=== PATIENT | female | born 1960 | race Caucasian/White ===

== ENCOUNTER 2018-08-14 08:04 | Emergency (ER) | payer OTHER ==
[2018-08-14 08:20] VITALS: BP 171/88
[2018-08-14] MEDS ORDERED: Dicyclomine 10 MG Cap PO ONE (08:29)
--- NOTE | 2018-08-14 08:33 | EDM.PDOC ---
ED HPI GENERAL MEDICAL PROBLEM - General Chief Complaint: Chest Pain Stated Complaint: CHEST PAIN Time Seen by Provider: 08/14/18 08:28 Source of Information: Reports: Patient History Limitations: Reports: No Limitations - History of Present Illness INITIAL COMMENTS - FREE TEXT/NARRATIVE: 58-year-old female presents to the ED with retrosternal chest pressure discomfort that radiate up into both sides of her neck across the shoulders and upper back and associated with some dyspnea. In develop numbness and tingling in both upper extremities. Pain started about 0545 hrs. this morning shortly after she got up for the day. In pain became more intense while driving her son to school this morning. She rates it as severe as 8 out of 10. Currently the pain is pretty well dissipated. She denies burping belching or having any significant heartburn. She has a known hiatal hernia. Has had previous appendectomy. Denies any nausea vomiting. She's also been ill with upper respiratory tract infection mostly nasal congestion sinusitis with mild cough. Onset: Today Onset Date: 08/14/18 Onset Time: 05:45 Duration: Minutes: Location: Reports: Chest (Central chest pressure rating up into her bilateral neck and across the upper back and shoulders.) Quality: Reports: Ache, Pressure Severity: Moderate (Was intense as 8 out of 10 now pretty well gone.) Improves with: Reports: Other Worsens with: Denies: None (Spontaneously improved.), Breathing, Cold Therapy, Eating, Medication, Rest, Other, Movement Context: Denies: Activity, Exercise, Lifting, Sick Contact, Trauma, Other Associated Symptoms: Reports: Cough, cough w sputum (Has a mild cough.), Shortness of Breath, Other (Does have sinus infection.). 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.) Middle Chest Pain Score (Numeric/FACES): 2 - Related Data Allergies Allergy/AdvReac Type Severity Reaction Status Date / Time No Known Allergies Allergy Verified 02/24/16 07:00 Home Meds: Home Meds Aspirin [Ecotrin] 81 mg PO DAILY 08/14/18 [History] Budesonide/Formoterol Fumarate [Symbicort 80-4.5 Mcg Inhaler] 1 dose INH ASDIRECTED 08/14/18 [History] Diltiazem HCl [Cardizem LA] 120 mg PO DAILY 08/14/18 [History] Lisinopril 20 mg PO DAILY 08/14/18 [History] Omeprazole 20 mg PO QPM 08/14/18 [History] atorvaSTATin Calcium [Lipitor] 20 mg PO DAILY 08/14/18 [History] hydroCHLOROthiazide [Hydrochlorothiazide] 25 mg PO DAILY 08/14/18 [History] Past Medical History - Past Surgical History GI Surgical History: Reports: Appendectomy Social & Family History - Living Situation & Occupation Living situation: Reports: Occupation: Employed ED ROS GENERAL - Review of Systems Review Of Systems: See Below Constitutional: Reports: Decreased Appetite. Denies: Fever, Chills, Malaise, Weakness, Fatigue, Weight Loss HEENT: Reports: No Symptoms Respiratory: Reports: Shortness of Breath, Cough (Mild intermittent productive cough for the last week due to cold.). Denies: Wheezing, Pleuritic Chest Pain Cardiovascular: Reports: Chest Pain, Lightheadedness. Denies: Blood Pressure Problem (Central chest heaviness rating up into her lateral neck and across upper shoulders and into both arms this morning), Claudication, Dyspnea on Exertion, Edema, Orthopnea Endocrine: Reports: No Symptoms GI/Abdominal: Reports: Abdominal Pain (Has a known hiatal hernia but no significant abdominal discomfort at this time) : Reports: No Symptoms Musculoskeletal: Reports: No Symptoms Skin: Reports: No Symptoms Neurological: Reports: No Symptoms Psychiatric: Reports: No Symptoms Hematologic/Lymphatic: Reports: No Symptoms Immunologic: Reports: No Symptoms ED EXAM, GENERAL - Physical Exam Exam: See Below Exam Limited By: No Limitations General Appearance: Alert, WD/WN, No Apparent Distress Eye Exam: Bilateral Eye: Normal Inspection (No scleral icterus.) Throat/Mouth: Normal Inspection, Normal Lips, Normal Oropharynx Head: Atraumatic, Normocephalic Neck: Normal Inspection, Supple, Non-Tender. No: Full Range of Motion, Lymphadenopathy (L), Lymphadenopathy (R) Respiratory/Chest: No Respiratory Distress, Lungs Clear, Normal Breath Sounds, No Accessory Muscle Use, Chest Non-Tender Cardiovascular: Normal Peripheral Pulses, Regular Rate, Rhythm, No Edema, No Gallop, No Murmur, No Rub Peripheral Pulses: 3+: Posterior Tibial (L), Posterior Tibial (R), Dorsalis Pedis (L), Dorsalis Pedis (R) GI/Abdominal: Normal Bowel Sounds, Soft, No Organomegaly, Tender Back Exam: Normal Inspection, Full Range of Motion. No: CVA Tenderness (L), CVA Tenderness (R) Extremities: Normal Inspection, Normal Range of Motion, Non-Tender, No Pedal Edema Neurological: Alert, Oriented, CN II-XII Intact, Normal Cognition, Normal Gait Psychiatric: Normal Affect, Normal Mood Skin Exam: Warm, Dry, Intact, Normal Color, No Rash EKG INTERPRETATION EKG Date: 08/14/18 Time: 08:16 Rhythm: NSR Rate (Beats/Min): 80 [place]: LAD-Left [place] Deviation (-21) P-Wave: Present QRS: Other (There is a near Q-wave in V1 and V2 and V3 suggestive of an old anteroseptal myocardial infarction. There is decreased voltage throughout the precordial leads she does have a thick chest. Similarly there is a near Q-wave in 3 and Q-wave in aVF compatible with an old inferior wall myocardial infarction. T-wave flattening in aVF and inversion in lead 3 which can be a normal variant. No definitive signs of any acute ischemia.) QT: Prolonged (Mildly prolonged) Course - Vital Signs Last Recorded V/S: Last Vital Signs Temp 36.7 C 08/14/18 08:13 Pulse 86 08/14/18 08:13 Resp 13 08/14/18 08:13 BP 171/88 H 08/14/18 08:13 Pulse Ox 100 08/14/18 08:13 - Orders/Labs/Meds Orders: Active Orders 24 hr Category Date Time Status EKG 12 Lead [EKG Documentation Completion] [RC] STAT Care 08/14/18 08:26 Active EKG Documentation Completion [RC] STAT Care 08/14/18 08:28 Active Labs: Laboratory Tests 08/14/18 08/14/18 08/14/18 Range/Units 08:34 08:34 08:34 WBC 6.74 (3.98-10.04) K/mm3 RBC 5.09 (3.98-5.22) M/mm3 Hgb 15.5 (11.2-15.7) gm/L Hct 46.3 H (34.1-44.9) % MCV 91.0 (79.4-94.8) fl MCH 30.5 (25.6-32.2) pg MCHC 33.5 (32.2-35.5) g/dl RDW Std Deviation 43.7 (36.4-46.3) fL Plt Count 238 (182-369) K/mm3 MPV 9.3 L (9.4-12.3) fl Neutrophils % (Manual) 56 (40-60) % Band Neutrophils % 2 (0-10) % Lymphocytes % (Manual) 31 (20-40) % Atypical Lymphs % 0 % Monocytes % (Manual) 9 (2-10) % Eosinophils % (Manual) 2 (0.7-5.8) % Basophils % (Manual) 0 L (0.1-1.2) Platelet Estimate Adequate RBC Morph Comment Normal D-Dimer, Quantitative (0.19-0.50) mg/L Sodium 140 (136-145) mEq/L Potassium 3.5 (3.5-5.1) mEq/L Chloride 104 (98-107) mEq/L Carbon Dioxide 25 (21-32) mEq/L Anion Gap 14.5 (5-15) BUN 15 (7-18) mg/dL Creatinine 0.9 (0.55-1.02) mg/dL Est Cr Clr Drug Dosing 54.55 mL/min Estimated GFR (MDRD) > 60 (>60) mL/min BUN/Creatinine Ratio 16.7 (14-18) Glucose 164 H (74-106) mg/dL Calcium 8.9 (8.5-10.1) mg/dL Magnesium 2.0 (1.8-2.4) mg/dl Total Bilirubin 0.5 (0.2-1.0) mg/dL AST 23 (15-37) U/L ALT 43 (14-59) U/L Alkaline Phosphatase 84 (46-116) U/L CK-MB (CK-2) 1.3 (0-3.6) ng/ml Troponin I < 0.017 (0.00-0.056) ng/mL C-Reactive Protein 0.4 (<1.0) mg/dL NT-Pro-B Natriuret Pep 36 (0-125) pg/mL Total Protein 7.4 (6.4-8.2) g/dl Albumin 3.5 (3.4-5.0) g/dl Globulin 3.9 gm/dL Albumin/Globulin Ratio 0.9 L (1-2) Amylase 21 L (25-115) U/L 08/14/18 Range/Units 08:34 WBC (3.98-10.04) K/mm3 RBC (3.98-5.22) M/mm3 Hgb (11.2-15.7) gm/L Hct (34.1-44.9) % MCV (79.4-94.8) fl MCH (25.6-32.2) pg MCHC (32.2-35.5) g/dl RDW Std Deviation (36.4-46.3) fL Plt Count (182-369) K/mm3 MPV (9.4-12.3) fl Neutrophils % (Manual) (40-60) % Band Neutrophils % (0-10) % Lymphocytes % (Manual) (20-40) % Atypical Lymphs % % Monocytes % (Manual) (2-10) % Eosinophils % (Manual) (0.7-5.8) % Basophils % (Manual) (0.1-1.2) Platelet Estimate RBC Morph Comment D-Dimer, Quantitative 0.21 (0.19-0.50) mg/L Sodium (136-145) mEq/L Potassium (3.5-5.1) mEq/L Chloride (98-107) mEq/L Carbon Dioxide (21-32) mEq/L Anion Gap (5-15) BUN (7-18) mg/dL Creatinine (0.55-1.02) mg/dL Est Cr Clr Drug Dosing mL/min Estimated GFR (MDRD) (>60) mL/min BUN/Creatinine Ratio (14-18) Glucose (74-106) mg/dL Calcium (8.5-10.1) mg/dL Magnesium (1.8-2.4) mg/dl Total Bilirubin (0.2-1.0) mg/dL AST (15-37) U/L ALT (14-59) U/L Alkaline Phosphatase (46-116) U/L CK-MB (CK-2) (0-3.6) ng/ml Troponin I (0.00-0.056) ng/mL C-Reactive Protein (<1.0) mg/dL NT-Pro-B Natriuret Pep (0-125) pg/mL Total Protein (6.4-8.2) g/dl Albumin (3.4-5.0) g/dl Globulin gm/dL Albumin/Globulin Ratio (1-2) Amylase (25-115) U/L Meds: Medications Discontinued Medications Generic Name Dose Route Start Last Admin Trade Name Odalis PRN Reason Stop Dose Admin Dicyclomine HCl 20 mg 08/14/18 08:29 08/14/18 08:37 Bentyl PO 08/14/18 08:30 20 mg ONETIME ONE Administration - Radiology Interpretation Free Text/Narrative:: 58-year-old female presents to the ED for evaluation of transient retrosternal chest pressure discomfort that radiated up into her neck and across her upper shoulders and into both upper extremities. Was described as a pressure sensation and radiated through to her mid back. Check chart about 0545 hrs. this morning and seemed to intensify over the ensuing hour which brought her to the ED. At time of arrival in the ED the pain it pretty well subsided. There was no associated burping belching or noted reflux. Patient does have a history of hiatal hernia. She has not yet eaten breakfast this morning. Examination was completely benign. ECG suggests evidence of old anteroseptal and inferior wall myocardial infarction which the patient has no history of. I will try to obtain an old ECG for comparison purposes. She doesn't want an IV at this time. Routine labs will be collected and one view chest x-ray. - Re-Assessments/Exams Free Text/Narrative Re-Assessment/Exam: 08/14/18 08:57 chest x-ray done portably is within normal limits. No pulmonary infiltrates .Cardiac size is within normal limits. 08/14/18 09:23 Labs reveal a normal white count at 6.74. 56% neutrophils 2% band cells. Hemoglobin is 15.5 with hematocrit of 46.3. Platelet count 238,000. D-dimer was 0.21. Sodium 140 with potassium 3.5. Chloride 104 the bicarbonate 25. Anion gap is 14.5 B1 is 15 with a creatinine of 0.9. Estimated GFR is greater than 60. Glucose a calcium of 8.9. Magnesium 2.0. Liver function normal CK-MB is 1.3. Troponin I is less than 0.017. C-reactive protein 0.4 BNP is 36 with a total protein is 7.4. Of even fraction slightly low at 3.5. Amylase is 21 Departure - Departure Time of Disposition: 09:53 Disposition: Home, Self-Care 01 Condition: Fair Clinical Impression: Non-cardiac chest pain, Hiatal hernia Instructions: Hiatal Hernia, Nonspecific Chest Pain, [id number] Referrals: Tay Davis MD [Primary Care Provider] - Forms: ED Department Discharge Additional Instructions: Evaluation the emergency room today in regards to development of central chest pressure discomfort that radiate up into the neck and across the upper shoulders and into both arms this morning. After you have been up for a period of time. By the time you came to the ED it had relieved itself a great deal and was nearly gone. ECG did not show any signs of acute ischemic change. Heart markers were completely normal. D-dimer looking for blood clot in the lung was also negative. Chest x-ray revealed normal lung bonilla and normal sized heart. It is that the chest pain was likely GI in origin with a small hiatal hernia having herniated up into your lower chest during the night and then started bothering you once he got up and moving around with gravity. Her with moving around the stomach likely return back into the abdominal cavity and thus relieved your pain. There is a fundoplication repair that can be done on the stomach to the bellybutton if you continue to have problems with hiatal hernia and reflux. He could discuss this with your primary care physician to have something set up if you want to pursue surgical treatment. - My Orders Last 24 Hours: My Active Orders 08/14/18 08:26 EKG 12 Lead [EKG Documentation Completion] [RC] STAT 08/14/18 08:28 EKG Documentation Completion [RC] STAT - Assessment/Plan Last 24 Hours: My Active Orders 08/14/18 08:26 EKG 12 Lead [EKG Documentation Completion] [RC] STAT 08/14/18 08:28 EKG Documentation Completion [RC] STAT
--- NOTE | 2018-08-14 08:57 | CR ---
Chest: Frontal view of the chest was obtained. Comparison: No prior chest x-ray. Heart size and mediastinum are normal. Lungs are clear. Bony structures are grossly intact. Impression: 1. Nothing acute is seen on frontal chest x-ray. Diagnostic code #1
== END 2018-08-14 10:15 | disposition home or self-care (01) ==
LOC: JD.ED 08:04
DX: R07.89 Other chest pain (principal); K44.9 Diaphragmatic hernia without obstruction or gangrene; Z79.82 Long term (current) use of aspirin; Z79.899 Other long term (current) drug therapy
CPT/HCPCS: 36415; 71045; 80053; 82150; 82553; 83735; 83880; 84484; 85007; 85027; 85379; 86140; 93005; 99285; A9270; 93010

== ENCOUNTER 2025-03-20 14:06 | Emergency (ER) | payer MEDICARE, OTHER ==
[2025-03-20 14:53] LABS: BASOPHILS ABSOLUTE AUTO 0.0 K/mm3 (0.0-0.2); BASOPHILS PERCENT AUTO 0.9 % (0.0-1.0); EOSINOPHILS ABSOLUTE AUTO 0.2 K/mm3 (0.0-0.4); EOSINOPHILS PERCENT AUTO 3.5 % (0.0-6.0); IMMATURE GRAN ABSOLUTE AUTO 0.03 K/mm3 (0.00-0.05); IMMATURE GRAN PERCENT AUTO 0.7 % (0.0-0.4); LYMPHOCYTES ABSOLUTE AUTO 1.9 K/mm3 (1.0-4.8); LYMPHOCYTES PERCENT AUTO 41.2 % (24.0-44.0); MEAN PLATELET VOLUME 9.3 fl (9.4-12.3); MONOCYTES ABSOLUTE AUTO 0.6 K/mm3 (0.0-0.8); MONOCYTES PERCENT AUTO 12.6 % (0.0-8.0); NEUTROPHILS ABSOLUTE AUTO 1.9 K/mm3 (1.8-7.7); NEUTROPHILS PERCENT AUTO 41.1 % (41.0-71.0); NRBC ABSOLUTE 0.00 (0.00-0.02); NRBC PERCENT 0.0 % (0.0-0.2); PLATELET COUNT,PLT 157 K/mm3 (150-400); RED BLOOD CELL COUNT 5.31 M/mm3 (4.10-5.30); WHITE BLOOD CELL COUNT,WBC 4.52 K/mm3 (3.9-11.3)
[2025-03-20] MEDS: Lactated Ringers 500 ML IV STA (14:58)
[2025-03-20] MEDS: Sodium Chloride 0.9% 10 ML Syringe FLUSH PRN (14:58)
[2025-03-20] MEDS: Iopamidol 612 MG/ML 100 ML Bottle IVPUSH ONE (15:05)
[2025-03-20] MEDS: Sodium Chloride 0.9% 10 ML Syringe FLUSH ONE (15:05)
[2025-03-20 15:17] LABS: A/G RATIO 0.9 (1-2); ALANINE AMINOTRANSFERASE,ALT 34.0 U/L (14-59); ASPARTATE AMNIOTRANSFERASE,AST 43.0 U/L (15-37); BILIRUBIN TOTAL 0.4 mg/dL (0.2-1.0); BLOOD UREA NITROGEN,BUN 24.0 mg/dL (7-18); CARBON DIOXIDE,CO2 25.0 mEq/L (21-32); CHLORIDE,CL 94.0 mEq/L (98-107); CREATININE 1.1 mg/dL (0.55-1.02); ESTIMATED GFR 56.0 mL/min (>60); GLUCOSE RANDOM 138.0 mg/dL (70-99); POTASSIUM,K 2.7 mEq/L (3.5-5.1); PROTEIN TOTAL,TP 7.6 g/dl (6.4-8.2); SODIUM,NA 132.0 mEq/L (136-145)
[2025-03-20 15:20] LABS: LACTIC ACID 1.1 mmol/L (0.4-2.0)
[2025-03-20 15:30] LABS: EST CRCL DRUG DOSING (CG) 39.5 mL/min
[2025-03-20] MEDS: Potassium Chloride 10 MEQ Tab.ER PO ONE ×3 (16:10→17:10)
[2025-03-20 16:11] LABS: APPEARANCE,URINE CLEAR (Clear); GLUCOSE,URINE NEGATIVE (Negative); OCCULT BLOOD,URINE NEGATIVE (Negative)
[2025-03-20 19:16] VITALS: BP 140/68; PULSE 90
== END 2025-03-20 18:31 | disposition home or self-care (01) ==
LOC: JD.ED 14:06
DX: K11.20 Sialoadenitis, unspecified (principal); E87.6 Hypokalemia; R59.0 Localized enlarged lymph nodes; I10 Essential (primary) hypertension; K21.9 Gastro-esophageal reflux disease without esophagitis; Z79.82 Long term (current) use of aspirin; Z79.2 Long term (current) use of antibiotics; Z79.899 Other long term (current) drug therapy; Z90.49 Acquired absence of other specified parts of digestive tract
CPT/HCPCS: 36415; 70491; 71045; 80053; 81003; 83605; 83735; 85025; 86140; 86308; 87428; 93005; 96365; 96366; 99284; A9270; J3480; J7030; J7120; Q9967